=== PATIENT | female | born 1985 | race African-American/Black ===

== ENCOUNTER 2019-04-17 15:25 | Emergency (ER) | payer OTHER, SELFPAY ==
[2019-04-17 15:36] VITALS: BP 101/41; PULSE 69; RESP 18; TEMP 36.2; O2SAT 100
--- NOTE | 2019-04-17 15:37 | ED.URI ---
HPI - URI/Sore Throat General Chief Complaint: Upper Respiratory Infection Stated Complaint: Sore Throat Time Seen by Provider: 04/17/19 15:50 Source: patient and RN notes reviewed Mode of arrival: ambulatory Limitations: no limitations History of Present Illness HPI Narrative: 43-year-old female presents with concern for 1 week history of sore throat, nasal congestion, sinus pain, sinus drainage. Reports intermittent cough. Reports [id number] medications relief. MD elicited complaint: sore throat Related Data Allergies Allergy/AdvReac Type Severity Reaction Status Date / Time No Known Allergies Allergy Verified 05/16/15 19:03 Review of Systems Review of Systems: Narrative: CONSTITUTIONAL: Reports malaise. Denies chills, sweats, or fever. EYES: Denies visual changes, redness, or discharge. ENT: Reports rhinorrhea, congestion, sinus pain, and sore throat. Denies otalgia CARDIOVASCULAR: Denies chest pain, palpitations, or edema. RESPIRATORY: Reports occasional cough. Denies dyspnea. GASTROINTESTINAL: Denies abdominal pain, nausea, vomiting, diarrhea SKIN: Denies rash or itching. MUSCULOSKELETAL: Reports myalgia. NEUROLOGIC: Reports headache. All systems reviewed & are unremarkable except as noted in HPI and below PMFSH Comments At time of signature, agree with nursing past medical, surgical, social and family history. There is no relevant family history pertinent to the presenting complaint Exam Narrative: Exam Narrative: GENERAL: Well-appearing, well-nourished, and in no acute distress. HEAD: Normocephalic EYES: PERRLA, conjunctivae clear ENT: Nares clear, turbinates edematous and erythematous, purulent discharge, sinus tenderness. Mucous membranes moist. TM pearly espino with dull light reflex bilaterally; no tragal tenderness. Oropharynx erythematous without lesions. Tonsils enlarged and without exudate, no drooling, no hoarseness, no trismus. NECK: Supple. No lymphadenopathy CHEST: Clear to auscultation, breath sounds equal. No wheezing, rhonchi, rales, or stridor. No respiratory distress, speaks in full sentences. HEART: Regular rate and rhythm. No murmur heard. Normal peripheral pulses. SKIN: Warm, dry, no rash. NEURO: Alert and oriented x3. PSYCH: Normal mood and affect Course Course Emergency Course: Patient is aware of diagnosis, understands and agrees to treatment plan. Anticipatory guidance given. Patient agrees to follow-up as directed and is aware of reasons to seek care at the emergency department. Portions of this record may have been created with voice recognition software Vital Signs Vital signs: Vital Signs Temperature 97.2 F L 04/17/19 15:36 Pulse Rate 69 04/17/19 15:36 Respiratory Rate 18 04/17/19 15:36 Blood Pressure 101/41 L 04/17/19 15:36 Pulse Oximetry 100 04/17/19 15:36 Temperature 97.2 F L 04/17/19 15:36 Pulse Rate 69 04/17/19 15:36 Respiratory Rate 18 04/17/19 15:36 Blood Pressure 101/41 L 04/17/19 15:36 Pulse Oximetry 100 04/17/19 15:36 Reviewed. MDM - URI/Sore Throat MDM Narrative Medical decision making narrative: Differential diagnosis considered: Strep pharyngitis, allergic rhinitis, upper respiratory tract infection, sinusitis, rhinosinusitis, nasopharyngitis. viral pharyngitis, otitis media, otitis externa, pneumonia, bronchitis, viral cough syndrome, viral syndrome, and influenza. Exam findings show no acute concerns or changes; patient is non-toxic appearing and is in no distress. Patient is appropriate for outpatient treatment and follow-up. Lab Data Attestation: I reviewed the patient's lab results. Labs: Strep Screen Presumptive Negative *(Reference Range: Negative)* Critical Care Time Critical Care Time Critical Care Time: No Discharge Plan Discharge Clinical Impression: Acute bacterial sinusitis Patient Disposition: Home, Self-Care Condition: Stable Instructions: Sinusitis (ED) Additional
== END 2019-04-17 16:24 | disposition home or self-care (01) ==
PROVIDERS: Emergency Provider Nurse Practitioner
DX: J01.90 Acute sinusitis, unspecified (principal)
CPT/HCPCS: 87081; 87880; 99213; G0463

== ENCOUNTER 2023-04-09 08:02 | Emergency (ER) | payer OTHER, MEDICAID, SELFPAY ==
--- NOTE | ~2023-04-09 | XR_ITS ---
EXAMINATION: XR chest 2V DATE: 04/09/2023 08:44 INDICATION: Chest pain. Cough. TECHNIQUE: Frontal and lateral views of the chest were obtained. COMPARISON: None. FINDINGS: There is no pneumonia, pleural effusion, or pneumothorax. The heart size is normal. IMPRESSION: 1. No acute cardiopulmonary disease. Reviewed, dictated and finalized at location A. ZER PERSON
--- NOTE | 2023-04-09 08:17 | ECG_ITS ---
Measurements Intervals [place] Rate: 97 P: 66 MT: 146 QRS: 47 QRSD: 86 T: 10 QT: 343 QTc: 437 Interpretive Statements SINUS RHYTHM POSSIBLE LEFT ATRIAL ENLARGEMENT [-0.1mV P WAVE IN V1/V2] NONSPECIFIC ST ABNORMALITY ABNORMAL ECG NO PREVIOUS ECG AVAILABLE FOR COMPARISON Electronically Signed On 04-09-2023 12:40:27 [employer] by Han Khan M.D.
[2023-04-09 08:18] VITALS: BP 112/58; PULSE 89; RESP 11; TEMP 36.3; O2SAT 100
[2023-04-09 08:34] LABS: Basophils Percent Auto 0.7 % (0.2-1.2); Eosinophils Absolute Auto 0.2 K/mm3 (0-0.3); Eosinophils Percent Auto 3.5 % (0-4.4); Hemoglobin 11.5 g/dL (12.0-15.0); Immature Granulocyte Absolute 0.02 K/mm3 (0.00-0.031); Immature Granulocyte Percent A 0.4 % (0-0.5); Lymphocytes Absolute Auto 0.92 K/mm3 (0.9-3.2); Mean Corpuscular HGB Conc 31.9 g/dl (32-36); Mean Corpuscular Hemoglobin 29.2 pg (26-34); Mean Corpuscular Volume 91.4 fl (80-100); Mean Platelet Volume 9.3 fl (7.4-10.4); Monocytes Absolute Auto 0.8 K/mm3 (0.1-0.6); Monocytes Percent Auto 14.6 % (2.6-8.5); Neutrophils Absolute Auto 3.5 K/mm3 (1.3-6.7); Neutrophils Percent Auto 63.8 % (45.5-73.1); Platelet Count Result 319 k/mm3 (150-375); Red Blood Count 3.94 M/mm3 (4.2-5.4); Red Cell Distribution Width 13.8 % (11.5-14.5); White Blood Count 5.4 K/mm3 (4.5-10.0)
[2023-04-09 08:52] LABS: Alanine Aminotransferase 8 U/L (6-35); Alkaline Phosphatase 56 U/L (38-126); Anion Gap 5 mmol/L (8-16); Aspartate Amino Transferase 17 U/L (14-36); Bilirubin,Total 0.3 mg/dL (0.2-1.3); Blood Urea Nitrogen 6 mg/dL (7-17); Calcium 8.8 mg/dL (8.4-10.2); Carbon Dioxide 27 mmol/L (22-30); Chloride 108 mmol/L (98-107); Estimated CRCL calculation 114 ml/min; Estimated Glomerular Filt Rate > 60; Glucose 98 mg/dL (65-110); Lipase 38 U/L (23-300); Potassium 3.6 mmol/L (3.4-5.0); Sodium 140 mmol/L (137-145)
--- NOTE | 2023-04-09 08:55 | ED.CHESTPAIN ---
HPI - Chest Pain General Chief Complaint: Chest Pain Stated Complaint: Nose bleed, sore throat, chest pain Time Seen by Provider: 04/09/23 08:55 Source: patient Mode of arrival: ambulatory Limitations: no limitations History of Present Illness HPI narrative: Cayla is a 37-year-old female patient presenting to the ER today with complaints of chest discomfort worse with coughing, sore throat, head congestion, and a nose bleed that started this morning. She reports other symptoms started on Thursday. No known fever but has had chills and body aches. No known exposure to anyone with COVID, flu, or strep. States that she noticed blood in her left near this morning after blowing her nose. States it blood for approximately 30 minutes and then it stopped. Denies any associated shortness of breath at this time. Rates her pain in the chest as a dull ache in the anterior chest currently 5/10 currently. Pain does not radiate. Cough is nonproductive. History of anemia and a heart murmur. Related Data Allergies Allergy/AdvReac Type Severity Reaction Status Date / Time No Known Allergies Allergy Verified 04/09/23 08:25 Review of Systems Review of Systems: Pertinent positives per HPI. Patient denies any fever, rash, visual changes, dizziness, shortness of breath, chest pain, palpitations, nausea, vomiting, diarrhea, constipation, abdominal pain, or any urinary issues. PMFSH Comments At the time of my signature, I reviewed and agree with the nursing past medical, surgical, social, and family history. There is no relevant family history pertinent to the patient complaint. Exam Narrative: General: Well-developed, well nourished, in no apparent distress Head: Normocephalic, atraumatic Eyes: Pupils equally round and reactive to light bilaterally, EOM intact, sclera and conjunctive clear, no discharge, lids normal Ears: TMs intact and clear, ear canals clear, no drainage, grossly hearing normal. Nose: Nares patent, clear discharge, severe inflammation in the turbinates left greater than right, right mild maxillary and ethmoid sinus tenderness. Mouth: Oropharynx without lesions or masses, good dentition, MMM. Neck: Supple, trachea midline, no enlargement of anterior or posterior cervical nodes, no thyroid masses or goiter palpable. Cardio: Regular rate and rhythm, s1 and s2 normal, no murmur appreciated. Resp: Clear to auscultation bilaterally anteriorly and posteriorly, no rhonchi, rales, wheezing or rubs Course Course Emergency Course: Portions of this record may have been created with voice recognition software. Vital Signs Vital signs: Vital Signs Temperature 36.3 C L 04/09/23 08:18 Pulse Rate 89 04/09/23 08:18 Respiratory Rate 11 L 04/09/23 08:18 Blood Pressure 112/58 L 04/09/23 08:18 Pulse Oximetry 100 04/09/23 08:18 Oxygen Delivery Room Air 04/09/23 08:18 Temperature 36.3 C L 04/09/23 08:18 Pulse Rate 89 04/09/23 08:18 Respiratory Rate 11 L 04/09/23 08:18 Blood Pressure 112/58 L 04/09/23 08:18 Pulse Oximetry 100 04/09/23 08:18 Oxygen Delivery Room Air 04/09/23 08:18 Vital signs reviewed MDM - Chest Pain MDM Narrative Medical decision making narrative: At the time of visit patient is resting comfortably on the exam table. Patient appears to be nontoxic. EKG: EKG shows sinus rhythm with heart rate of 97 beats per minute without any ST elevation or depression noted. No T-wave inversions Labs: CBC shows white blood cell count of 5.4, H&H 11.5 and 36.0, platelet count 319, anti coagulation studies are within normal limits, sodium levels 140, potassium 3.6, chlorides 1 await, BUN is 6 and creatinine 0.7, GFR greater than 60, glucose is 98, liver function test within normal limits, negative troponin less than 0.012, lipase is 38. COVID, influenza, and RSV testing was negative. Strep test was negative. Diagnostics: Chest x-ray is negative for any acute cardiopulmonary
[2023-04-09 08:56] LABS: Prothrombin Time 13.9 Seconds (11.1-14.7)
[2023-04-09 08:57] LABS: Partial Thromboplastin Time 29.5 SECONDS (22.3-36.8)
[2023-04-09 09:02] LABS: Troponin I < 0.012 ng/mL (0.000-0.034)
[2023-04-09 10:01] LABS: Strep Group A RT-PCR NOT DETECTED (Negative)
[2023-04-09 10:12] LABS: Influenza A QL RT-PCR Negative (Negative); Influenza B QL RT-PCR Negative (Negative); RSV RNA, RT-PCR Negative (Negative); SARS-CoV-2 RNA PCR Negative (Negative)
[2023-04-09 11:09] VITALS: BP 142/84; PULSE 88; RESP 16; O2SAT 98
== END 2023-04-09 11:10 | disposition home or self-care (01) ==
PROVIDERS: Student in an Organized Health Care Education/Training Program; Emergency Provider Nurse Practitioner Family; PCP Nurse Practitioner
DX: J06.9 Acute upper respiratory infection, unspecified (principal); B34.9 Viral infection, unspecified; D64.9 Anemia, unspecified; R04.0 Epistaxis; Z20.822 Contact with and (suspected) exposure to COVID-19
CPT/HCPCS: 36415; 71046; 80053; 83690; 84484; 85025; 85610; 85730; 87637; 87651; 93005; 99284

== ENCOUNTER 2023-09-07 16:49 | Emergency (ER) | payer OTHER, MEDICAID, SELFPAY ==
[2023-09-07 16:58] VITALS: BP 100/53; PULSE 79; RESP 19; TEMP 37; O2SAT 100
--- NOTE | 2023-09-07 17:08 | ED.EAR ---
HPI - Ear Problem General Chief complaint: Ear Stated complaint: Left Ear Irritation Time Seen by Provider: 09/07/23 17:05 Source: patient Mode of arrival: ambulatory Limitations: no limitations History of Present Illness HPI Narrative: Cayla is a 37-year-old female patient presenting to the clinic today with complaints of foreign body in the left ear. She reports she was cleaning her ear with a Q-tip last night and lost part of the cotton swab in her ear. Related Data Allergies Allergy/AdvReac Type Severity Reaction Status Date / Time No Known Allergies Allergy Verified 04/09/23 08:25 Review of Systems Review of Systems: Pertinent positives per HPI. Patient denies any fever, chills, rash, headache, visual changes, dizziness, cough, runny nose, sore throat, shortness of breath, chest pain, palpitations, nausea, vomiting, diarrhea, constipation, abdominal pain, or any urinary issues. PMFSH Comments At the time of my signature, I reviewed and agree with the nursing past medical, surgical, social, and family history. There is no relevant family history pertinent to the patient complaint. Exam Narrative: General: Well-developed, well nourished, in no apparent distress Head: Normocephalic, atraumatic Eyes: Pupils equally round and reactive to light bilaterally, EOM intact, sclera and conjunctive clear, no discharge, lids normal Ears: TMs intact, bulging, fluid noted behind TMs, cotton swab stuck in the left ear canal, alligator forceps was used to remove contact swab, ear canals clear, no drainage, grossly hearing normal. Nose: Nares patent, no discharge, no inflammation, no sinus tenderness. Mouth: Oropharynx without lesions or masses, good dentition, MMM. Neck: Supple, trachea midline, no enlargement of anterior or posterior cervical nodes, no thyroid masses or goiter palpable. Cardio: Regular rate and rhythm, s1 and s2 normal, no murmur appreciated. Resp: Clear to auscultation bilaterally anteriorly and posteriorly, no rhonchi, rales, wheezing or rubs Course Course Emergency Course: Portions of this record may have been created with voice recognition software. Level of Care: Express Care Visit Vital Signs Vital signs: Vital Signs Temperature 37.0 C 09/07/23 16:58 Pulse Rate 79 09/07/23 16:58 Respiratory Rate 19 09/07/23 16:58 Blood Pressure 100/53 L 09/07/23 16:58 Pulse Oximetry 100 09/07/23 16:58 Oxygen Delivery Room Air 09/07/23 16:58 Temperature 37.0 C 09/07/23 16:58 Pulse Rate 79 09/07/23 16:58 Respiratory Rate 19 09/07/23 16:58 Blood Pressure 100/53 L 09/07/23 16:58 Pulse Oximetry 100 09/07/23 16:58 Oxygen Delivery Room Air 09/07/23 16:58 Vital signs reviewed Procedures FB Removal Ear Foreign Body #1: Foreign Body Removal Date: 09/07/23 Location: ear canal (L) Foreign Body Suspected: other (cotton swab) TM intact pre-procedure: yes Foreign Body Removed: yes Foreign Body Removal Technique: instrumentation Tympanic Membrane Intact Post Procedure: Yes Patient Tolerated Procedure: well and no complications Complications: none Medical Decision Making MDM Narrative Medical decision making narrative: At the time of visit patient is resting comfortably on the exam table. Patient appears to be nontoxic. Plan: Foreign body was removed from the left ear canal using alligator forceps in the clinic today. Supportive measures were discussed with the patient and they voiced understanding discharge instructions and agrees to treatment plan. Return precautions reviewed Differential Diagnosis Differential Diagnosis: Otitis media, otitis externa, eustachian tube dysfunction, foreign body in the left ear canal, serous otitis, cerumen impaction Vital Signs Vital Signs: Vital Signs Temperature 37.0 C 09/07/23 16:58 Pulse Rate 79 09/07/23 16:58 Respiratory Rate 19 09/07/23 16:58 Blood
== END 2023-09-07 17:21 | disposition home or self-care (01) ==
PROVIDERS: Emergency Provider Nurse Practitioner Family; PCP Nurse Practitioner
DX: T16.2XXA Foreign body in left ear, initial encounter (principal); W44.8XXA Other foreign body entering into or through a natural orifice, initial encounter; H65.03 Acute serous otitis media, bilateral
CPT/HCPCS: 69200; 99212; G0463

== ENCOUNTER 2023-12-18 03:01 | Emergency (ER) | payer OTHER, MEDICAID, SELFPAY ==
--- NOTE | ~2023-12-18 | XR_ITS ---
EXAMINATION: XR chest 2V DATE: 12/18/2023 03:32 INDICATION: Cough. TECHNIQUE: Frontal and lateral views of the chest were obtained. COMPARISON: Chest 2 views 04/09/2023 FINDINGS: There is no pneumonia, pleural effusion, or pneumothorax. The heart size is normal. IMPRESSION: 1. No acute cardiopulmonary disease. Reviewed, dictated and finalized at location A.
[2023-12-18 03:10] VITALS: BP 114/54; PULSE 114; RESP 15; TEMP 36.6; O2SAT 100
[2023-12-18] MEDS: SODIUM CHLORIDE 0.9% IV 2,000 ML 999 ML IV CONT (03:20)
[2023-12-18] MEDS: ALBUTEROL SULFATE NEB 2.5 MG/3 ML INH 5 MG INHALATION (03:31)
[2023-12-18 03:33] VITALS: PULSE 80; RESP 18
[2023-12-18 03:43] VITALS: PULSE 91; RESP 18
[2023-12-18 04:22] LABS: Influenza A QL RT-PCR Negative (Negative); Influenza B QL RT-PCR Negative (Negative); RSV RNA, RT-PCR Negative (Negative); SARS-CoV-2 RNA PCR Negative (Negative)
--- NOTE | 2023-12-18 04:58 | ED_ITS ---
HPI - URI/Sore Throat General Chief Complaint: Upper Respiratory Infection Stated Complaint: cough/chest pain/back pain Time Seen by Provider: 12/18/23 03:13 Source: patient Mode of arrival: ambulatory Limitations: no limitations History of Present Illness HPI Narrative: This is a 38-year-old female, who denies significant past medical history, presenting to the emergency department complaining of cough and congestion for the past week. She states this is not productive and nonbloody. She complains of diffuse bilateral chest wall pain with deep inspirations and coughing. She denies recent travel or known sick contacts. She has no other complaints at this time. Related Data Allergies Allergy/AdvReac Type Severity Reaction Status Date / Time No Known Allergies Allergy Verified 12/18/23 03:02 Review of Systems Review of Systems: Last menstrual All systems reviewed & are unremarkable except as noted in HPI and below PMFSH Past Medical History Medical History No significant past medical history Surgical History Surgical History No significant past surgical history Social History Social History Smoking status: Never smoker Alcohol intake: never Substance use: never Exam Narrative: GENERAL: Well-developed, well-nourished, and in no acute distress. HEAD: Normocephalic, atraumatic. EYES: PERRLA and EOMI. ENT: Nares clear, no rhinorrhea or epistaxis. Mucous membranes moist. Oropharynx without tonsillar hypertrophy exudate or other lesions. Bilateral TM s pearly espino nonbulging CHEST: Clear to auscultation. No respiratory distress. No wheezes rales or rhonchi HEART: Regular rate and rhythm. No murmur heard. Normal peripheral pulses. ABDOMEN: Soft, nontender, nondistended, normal active bowel sounds. EXTREMITIES: Normal range of motion. No edema. SKIN: Warm, dry, no rash. NEURO: Alert and oriented x3. No focal deficit. Moving all 4 limbs spontaneously PSYCH: Normal mood and affect. Course Course Emergency Course: 04:50 - Chest x-ray not concerning for focal consolidation by my interpretation. The patient tested negative for influenza, RSV and COVID. On re-evaluation after a 5 mg albuterol nebulizer treatment, the patient states she feels improved lower cough persists. I suspect viral upper respiratory infection and bronchitis is the cause of her symptoms. Will discharge with albuterol nebs, benzonatate and recommendation for primary care follow-up. I discussed the findings and recommendations with the patient. Discussed return and emergency precautions including signs/symptoms of ACS, PE and respiratory distress. The patient voiced understanding and agreement with the plan. All questions answered to her satisfaction. Vital Signs Vital signs: Vital Signs Temperature 98 F 12/18/23 03:10 Pulse Rate 114 H 12/18/23 03:10 Respiratory Rate 15 12/18/23 03:10 Blood Pressure 114/54 L 12/18/23 03:10 Pulse Oximetry 100 12/18/23 03:10 Oxygen Delivery Room Air 12/18/23 03:10 Temperature 98 F 12/18/23 03:10 Pulse Rate 91 12/18/23 03:43 Respiratory Rate 18 12/18/23 03:43 Blood Pressure 114/54 L 12/18/23 03:10 Pulse Oximetry 100 12/18/23 03:10 Oxygen Delivery Room Air 12/18/23 03:10 MDM - URI/Sore Throat MDM Narrative Medical decision making narrative: Plan: Labs, nebs, imaging, reassess Differential Diagnosis Differential diagnosis: Likely upper respiratory infection, viral infection, bronchitis, influenza and other (COVID, pneumonia, pneumothorax, other) Lab Data Labs: Lab Results 12/18/23 Range/Units 03:18 Influenza A (RT-PCR) Negative (Negative) Influenza B (RT-PCR) Negative (Negative) RSV (RT-PCR) Negative (Negative) SARS-CoV-2 RNA (RT-PCR) Negative (Negative) Discharge Plan Discharge Clinical Impression: Bronchitis Upper respiratory infection Qualifiers: URI type: unspecified viral URI Qualified Code(s): J06.9 - Acute upper respiratory infection, unspecified Patient Disposition: Home, Self-Care Condition: Stable Instructions: Antibiotic Form, Acute Bronchitis (ED) Additional Instructions: You were seen in the emergency department. A chest x-ray was not concerning for pneumonia. You tested negative for COVID, influenza and RSV. Your given albuterol nebulizer treatment in the emergency department. I suspect a viral upper respiratory infection and bronchitis is the cause of your symptoms. I recommend cough suppressants, decongestants and albuterol as needed as well as follow-up with your primary care doctor. If you develop new or worsening chest pain cough shortness of breath, loss of consciousness, or if you have other emergent concerns for life, limb, or eyesight, return to the emergency department. Patient Language: Nauruan Prescriptions: New albuterol sulfate 90 mcg/actuation HFA aerosol inhaler 2 puff inhalation QID PRN (Reason: shortness of breath or wheezing) Qty: 6.7 0RF benzonatate 200 mg capsule 200 mg PO TID PRN (Reason: cough) Qty: 9 0RF Follow-up/Referrals: Anthony,PANCHO Hernández [Primary Care Provider] - Stand Alone Forms: Work/School Release IP Time of Disposition: 05:00
== END 2023-12-18 05:05 | disposition home or self-care (01) ==
PROVIDERS: Emergency Provider Preventive Medicine Aerospace Medicine; PCP Nurse Practitioner
DX: J40 Bronchitis, not specified as acute or chronic (principal); J06.9 Acute upper respiratory infection, unspecified; Z20.822 Contact with and (suspected) exposure to COVID-19
CPT/HCPCS: 71046; 87637; 94640; 96360; 96361; 99283; J7030

== ENCOUNTER 2024-07-01 00:41 | Emergency (ER) | payer OTHER, SELFPAY ==
[2024-07-01] VITALS (13 sets, daily range): BP systolic 100–122; BP diastolic 45–78; PULSE 72–89; RESP 13–21; TEMP 36.7; O2SAT 95–100
--- NOTE | ~2024-07-01 | CT_ITS ---
Non-contrast CT scan of the Abdomen and Pelvis Clinical indication: Abdominal pain Technique: 2.5 mm axial scans were obtained through the abdomen and pelvis without intravenous or or al contrast. Dose reduction technique was used on this scan by utilizing automated exposure control a nd iterative reconstruction technique. The dose-length product (DLP) was 904.53 mGy-cm. Findings: Images through the lung bases reveal no abnormalities. There is no evidence of renal or ureteral calculi. The kidneys and the ureters are nondilated. Small hepatic cysts are present. The spleen, pancreas, gallbladder, and adrenals appear normal. Ther e is no aortic aneurysm. There is no evidence of bowel obstruction. Images through the pelvis were performed. There is no evidence of ascites or lymphadenopathy. Urinary bladder unremarkable. No definite adnexal mass seen. Impression: No significant abnormality seen. Reviewed, dictated and finalized at [facility]. Impression: No significant abnormality seen.
--- OUTSIDE RECORDS SUMMARY | 2024-07-01 00:44 | XMS_ITS | Encounter Summary ---
Author Organization [facility] Address [address] [place] [address] Phone Care Team Providers Care Wire Photo Operator News Name Role Phone Unknown, Notinfile Primary Care Provider Unavail able Betty Cruz PIZZA CHEF Primary Care Provider [phone] Encounter Details Date Type Department Care Team (Late st Contact Info) Description 04/20/2017 Orders Only [facility] ProviderLakesha MD [address] [place], [place] [id number] Social History Tobacco Use Types Packs/Day Years Used Date Smoking Tobacco: Never Assessed Comments Unknown Sex and Gender Information Value Date Recorded Sex Assigned at Not on file Legal Sex Female 6:12 PM ONCOLOGY PHYSICIAN ASSISTANT Gender Identity Not on file Sexual Orientation Not on file documented as of this encounter Plan of Treatment Not on file documented as of this encounter Procedures Procedure Name Priority Date/Time Associated Diagnosis Comments CYTOLOGY 04/20/2017 12:00 AM ONCOLOGY PHYSICIAN ASSISTANT documented in this encounter Results * CYTOLOGY (04/20/2017 12:00 AM ONCOLOGY PHYSICIAN ASSISTANT) Narrative 04/20/2017 12:00 AM ONCOLOGY PHYSICIAN ASSISTANT Ordered by an unspecified provider. Historical Provider LAB CYTOLOGY ORDERABLES F inal Result documented in this encounter Visit Diagnoses Not on filedocumented in this encounter Additional Health Concerns Infection Onset Date Last Indicated Resolved Time COVID: Suspected 12/04/2020 12/04/2020 12/05/2020 12:08 AM CDT COVID: Suspected 07/08/2021 07/08/2021 07/08/2021 5:45 PM CDT COVID19 07/08/2021 07/08/2021 07/18/2021 3:05 AM CDT COVID: Recovered Comment:Added based on recent COVID infection. 07/18/2021 10/14/2021 11/15/2021 3:05 AM C DT COVID: Suspected 09/24/2023 09/24/2023 09/24/2023 10:33 PM CDT COVID19 09/24/2023 09/24/2023 10/04/2023 3:05 AM CDT documented as of this encounter Care Teams Wire Photo Operator News Relationship Specialty Start Date End Date Unknown, Notinfile PCP - General 04/06/18 11/24/19 Betty Cruz [place] [address] [place] [address] PCP - General Publicity Expert 11/25/19 documented as of this encounter
--- OUTSIDE RECORDS SUMMARY | 2024-07-01 00:44 | XMS_ITS | Clinical Summary ---
Author Organization [facility] Address [address] [place] [address] Care Team Providers Care Property Portfolio Officer Name Role Phone Kelley Cruza ABIMBOLA Primary Care Provider [phone] Allergies No known active allergies Medications cholecalciferol (VITAMIN D-3) 50,000 unit capsule Take 1 capsule (50,000 Units total) by mouth once a week 4 capsule 5 0 Active levonorgestreL-eth inyl estrad (Lutera, 28,) 0.1-20 mg-mcg per tabletIndications: Oral contraceptive pill surveillance Take 1 tablet by mouth daily 84 tablet 2 2 Active Active Problems No known active problems Family History Medical History Relation Name Comments Asthma Brother Breast cancer Mother's Sister Relation Name Status Comments Brother Mother's Sister Other at age 50's Social History Tobacco Use Types Packs/Day Years Used Date Smoking Tobacco: Never Smokeless Tobacco: Never Alcohol Use Standard Drinks/Week Comments Yes 0 (1 standard drink = 0.6 oz pur e alcohol) Personal Safety Answer Date Recorded Have you ever been in or are you currently in a harmful physical or emotional relationship or is someone making you feel afraid or unsafe? Denies 09/24/2023 Comments No Sex and Gender Information Value Date Recorded Sex Assigned at Not on file Legal Sex Female 6:12 PM JEWELRY CONSULTANT Gender Identity Not on file Sexual Orientation Not on file Obstetrics History Para Term AB IAB SAB Ectopic Multiple Livin g Live Births 3 3 3 0 0 0 0 0 0 3 3 Date Outcome GA Total Labor Labor/2nd/3rd Weight Sex Type Anes PTL Andria A1 A5 Name Clin Term Term Term Last Filed Vital Signs Vital Sign Reading Time Taken Comments Blood Pressure 138/67 09/24/2023 9:23 PM CDT Pulse 110 09/24/2023 9:23 PM CDT Temperature 36.4 C (97.5 F) 09/24/2023 9:23 PM CDT Respiratory Rate 16 09/24/2023 9:23 PM CDT Oxygen Saturation 100% 09/24/2023 9:23 PM CDT Inhaled Oxygen Concentration - - Weight 97.5 kg (215 lb) 09/24/2023 9:23 PM CDT Height 170.2 cm (5' 7 ) 07/08/2021 5:24 PM CDT Body Mass Index 33.67 07/08/2021 5:24 PM CDT Plan of Treatment Health Maintenance Due Date Last Done Comments Depression Screening 1985 Varicella Vaccines (1 of 2 - 13+ 2-dose series) 10/14/1996 Hepatitis B Screening 10/14/2001 Cervical Cancer Screening 04/20/2018 04/20/2017, Regular Well Visit/Exam 18-64 04/05/2022 04/05/2021, 11/25/2019 Breast Cancer Screening-Mammogram 04/11/2023 04/11/2022 Covid-19 Vaccine ( season) 2023 10/24/2020, 10/02/2020 Influenza Vaccine (Season Ended) 2024 12/29/2022, 01/14/2022, 04/14/2016 DTaP/Tdap/Td Vaccine (2 - Td or Tdap) 07/16/2032 07/16/2022 Hepatitis C Screening Completed 04/05/2021 , 01/31/2020, 04/06/2017, Additional history exists HPV Vaccines Aged Out No longer eligi ble based on patient's age to complete this topic Pneumococcal vaccine <65 Aged Out No longer eligible based on patient's age to complete this topic Procedures Procedure Name Priority Date/Time Associated Diagnosis Comments HEPATITIS C ANTIBODY Routine 04/05/2021 12:44 PM JEWELRY CONSULTANT Screen for STD (sexually transmitted disease) THINPREP PAP Routine 04/20/2017 9:10 PM JEWELRY CONSULTANT from Last 3 Months or Most Recently Relevant to Health Maintenance Results * Hepatitis C antibody (04/05/2021 12:44 PM JEWELRY CONSULTANT) Hep C Ab Nonreactive Nonreactive [facility]LE Comment: Interpretive Data Nonreactive: Antibodies to HCV not detected. Does NOT exclude the possibility of recent exposure to HCV. Equivocal: Equivocal for HCV antibodies. Supplemental molecular testing will be automatically performed to determine infection status in accordance with current CDC screening recommendations. Reactive: Positive for HCV antibodies. This may represent current or past HCV infection. Supplemental molecular testing will be automatically performed to determine current infection status in accordance with current CDC screening recommendations. Interpretive data was last revised on 2019. Blood 04/05/2021 12:4 4 PM JEWELRY CONSULTANT 04/05/2021 6:39 PM JEWELRY CONSULTANT Sergio Duran MD LAB MICROBIOLOGY - GENERAL ORDERABLES Final Result [facility] [address] [facility] Department [place] [address] * ThinPrep Pap (04/20/2017 9:10 PM JEWELRY CONSULTANT) THIN PREP PAP SMEAR SEE NOTES 04/27/2017 11:23 AM JEWELRY CONSULTANT [facility] HISTORICAL RESULTS Comment: [facility] Department of Pathology [address] [place] [id number] Final Report with Addendum Patient Name: CAYLA HARDIN Address: [address] [place] [address] Service: Laboratory Location: Lab Taken: 04/20/2017 Gender: F Received 04/22/2017 : 1985 (Age: 31) Hospital #: [id number] Accessioned: 04/23/2017 Patient Type: CH Ref Lab Reported 04/24/2017 Physician(s): Dr. Sergio Duran M.D. [facility] Diagnosis: Source of Specimen: SCREENED IMAGED PAP w/ HPV . Specimen Adequacy: - Specimen satisfactory for interpretation; endocervical/transformation zone component absent or insufficient . General Category: - Negative for intraepithelial lesion or malignancy . RICHARD Duran(ASCP) Report Electronically Reviewed and Signed Out By RICHARD Duran(ASCP) 04/24/2017 09:56:06 . Addenda: HPV RNA Test Interpretation . NEGATIVE for types 16, 18, 31, 33, 35, 39, 45, 51, 52, 56, 58, 59, 66 and 68. . Test performed utilizing [employer] Aptima assay. RICHARD Brewster(ASCP) Report Electronically Reviewed and Signed Out By RICHARD Brewster(ASCP) 04/23/2017 14:22:56 . Specimen(s) Received: A: SCREENED IMAGED PAP w/ HPV . Clinical History: Last Menstrual Period: 04/14/17 . . The Pap test is a screening test used to aid in the detection of cervical cancer and its precursors. It should not be the sole means by which malignant and premalignant lesions are diagnosed. Both false negative and false positive results may occur. It also has poor sensitivity for the detection of endometrial lesions and should not be used to evaluate suspected endometrial abnormalities. For these reasons it is most important to obtain Pap tests at regular intervals. The performance characteristics of some immunohistochemical stains, fluorescence in-situ hybridization tests and immunophenotyping by flow cytometry cited in this report (if any) were determined by the Surgical Pathology Department at [facility] as part of an ongoing bottle house quality control technician program and in compliance with federally mandated regulations drawn from the Clinical Laboratory Improvement Act of 1988 (CLIA '88). Some of these tests rely on the use of analyte specific reagents and are subject to specific labeling requirements by the US Food and Drug Administration. Such diagnostic tests may only be performed in a facility that is certified by the Department of Health and Human Services as a high complexity laboratory under CLIA '88. The FDA has determined that such clearance or approval is not necessary. This test is used for clinical purposes. It should not be regarded as investigational or for research. Nevertheless, federal rules concerning the medical use of analyte specific reagents require that the following disclaimer be attached to the report: This test was developed and its performance characteristics determined by the Surgical Pathology Department of [facility]. It has not been cleared or approved by the U. S. Food and Drug Administration. 04/20/2017 9:10 PM JEWELRY CONSULTANT 04/21/2017 2:42 PM JEWELRY CONSULTANT Sergio Duran MD LAB PATHOLOGY ORDERABLES F inal Result [facility] HISTORICAL RESULTS from Last 3 Months or Most Recently Relevant to Health Maintenance Insurance [facility] [employer] Address: [facility] [id number] [place] [address] [facility] [employer] Address: [address] [place] [address] [employer] Address: [facility] [id number] [place] [address] Care Teams Property Portfolio Officer Relationship Specialty Start Date End Date Betty Cruz NP [address] [place] [address] PCP - General [place] 11/25/19
--- OUTSIDE RECORDS SUMMARY | 2024-07-01 00:44 | XMS_ITS | Clinical Summary ---
Author Organization [facility] Address [address] [place] [address] Care Team Providers Care Shaving Machine Operator Name Role Phone Betty Cruz MILITARY AIRCRAFT DESIGNER-LATENT PRINT EXAMINER Primary Care Provider [phone] Source Comments [facility],non-owned Affiliates and Associated Physician Practices is amultiple site organization consisting of ambulatory clinics and hospital sitesin [place], [place], [place] and [place]. This disclosure is being madepursuant to the Care Everywhere program and may not contain all information available regarding this patient. Last updated 17.[facility] Allergies No known active allergies Medications * Be aware that medications may not be up to date on this document. Alwaysverify current medications with the patient. nystatin/triamc inolone (MYCOLOG) 686285-5.1 UNIT/GM-% ointment SANJU SPARINGLY EXT AA BID FOR 7 TO 14 DAYS 7 Active levonorgestrel- ethinyl estradiol (AVIANE) 0.1-20 MG-MCG tablet Take 1 tablet by mouth once daily 7 Active selenium sulfide (SELSUN) 2.5 % lotion Use daily to affected areas x 2 weeks, then decrease use to 1-2x weekly as maintanence therapy if improved. 118 mL 11 8 Active Additional Information Patient not taking.Reported on 09/08/2017 fluconazole (DIFLUCAN) 200 MG tabletIndicatio ns:Tinea versicolor Take 1 tablet by mouth every 7 days 2 tablet 8 Active Active Problems Problem Noted Date Diagnosed Date Tinea versicolor 09/08/2017 Family History Medical History Relation Name Comments Asthma Neg Hx CVA Neg Hx Cancer - Breast Neg Hx Cancer - Other Neg Hx Cancer - Skin, Melanoma Neg Hx Cancer - Skin, Non Melanoma Neg Hx Eczema Neg Hx Hemophilia Neg Hx Psoriasis Neg Hx Social History Tobacco Use Types Packs/Day Years Used Date Smoking Tobacco: Never Smokeless Tobacco: Never Alcohol Use Standard Drinks/Week Comments No 0 (1 standard drink = 0.6 oz pur e alcohol) Comments Unknown Sex and Gender Information Value Date Recorded Sex Assigned at Not on file Legal Sex Female 5:33 AM DIRECTOR OF SUSTAINABLE DESIGN Gender Identity Not on file Sexual Orientation Not on file Plan of Treatment Health Maintenance Due Date Last Done Comments LIPID TESTING 1985 MAMMOGRAM 1985 HIV SCREENING 10/14/1998 HEPATITIS C SCREENING 10/10/2001 DTAP/TDAP/TD VACCINES (1 - Tdap) 10/14/2002 HEPATITIS B VACCINE (1 of 3 - 19+ 3-dose series) 10/14/2002 COVID-19 VACCINE (1 - 2023-2 5 season) 2023 DEPRESSION SCREENING 02/24/2024 INFLUENZA VACCINE (Season Ended) 2024 ZOSTER VACCINE (1 of 2) 10/14/2033 HIB VACCINE Aged Out No longer eligi ble based on patient's age to complete this topic HPV VACCINE Aged Out No longer eligi ble based on patient's age to complete this topic MENINGOCOCCAL (Group B) VACC INE SHARED DECISION-MAKING Aged Out No longer eligibl e based on patient's age to complete this topic MENINGOCOCCAL GROUPS A/C/Y/W VACCINE Aged Out No longer eligible b ased on patient's age to complete this topic PNEUMOCOCCAL VACCINE Aged Out No long er eligible based on patient's age to complete this topic Insurance [facility] Care Teams Shaving Machine Operator Relationship Specialty Start Date End Date Betty Cruz APRN-NITA [place] [place] [address] PCP - General 09/02/17
--- OUTSIDE RECORDS SUMMARY | 2024-07-01 00:44 | XMS_ITS | Clinical Summary ---
Author Organization [facility] Address [address] [place] [address] Care Team Providers Care Equipment Superintendent Name Role Phone Valentín Cruz NP Primary Care Provider [phone] Allergies No known active allergies Medications ondansetron (ZOFRAN) 4 MG tabletIndicatio ns:Flank pain Take 1 tablet (4 mg total) by mouth every 8 (eight) hours as needed. 20 tablet 5 Active tamsulosin (FLOMAX) 0.4 MG CapIndications: Flank pain Take 1 capsule (0.4 mg total) by mouth daily. 90 capsule 1 5 Active phentermine (ADIPEX-P) 37.5 MG capsuleIndicati ons:Class 1 obesity due to excess calories without serious comorbidity with body mass index (BMI) of 31.0 to 31.9 in adult Take 1 capsule (37.5 mg total) by mouth before breakfast. 30 capsule 4 025 Discontinued tamsulosin (FLOMAX) 0.4 MG CapIndications: Flank pain Take 1 capsule (0.4 mg total) by mouth daily. 30 capsule 5 025 Discontinued traMADol (ULTRAM) 50 MG tabletIndicatio ns:Acute Pain < 7 Day Supply Take 1 tablet (50 mg total) by mouth every 8 (eight) hours as needed for Pain. Indications : Acute Pain < 7 Day Supply 21 tablet 5 025 Active Problems Problem Noted Date Diagnosed Date Tinea versicolor 11/19/2016 Murmur Resolved Problems Problem Noted Date Diagnosed Date Resolved Date Encounter to establish care 04/14/2016 01/05/2023 Encounter for preventive health examination 02/20/2016 01/05/2023 Chest pain 07/16/2022 Encounters Date Type Department Care Team Description 06/24/2024 11:20 AM CDT Allied Health/Nurse Visit [address] [phone] Valentín Cruz NP Blood In Urine 06/24/2024 - 06/24/2024 11:59 PM CDT Hospital Encounter [facility] [place] [address] Valentín Cruz NP Discharge Disposition: Home or Self Care (Routine Discharge) 06/24/2024 Travel 06/09/[address] [address] Valentín Cruz NP Results (Imaging results. Unable to LVM.) 06/08/[address] [address] Valentín Cruz NP Question 06/08/[address] [phone] Valentín Cruz NP Follow Up Call 06/08/2024 Results Follow-Up [address] [address] Valentín Cruz NP XR ABD KUB, URINALYSIS AUTO DIP, URINALYSIS MICRO ONLY 06/07/2024 4:30 PM CDT - 06/07/2024 11:59 PM CDT Hospital Encounter [facility] [place] [address] Valentín Cruz NP Discharge Disposition: Home or Self Care (Routine Discharge) 06/07/2024 3:20 PM CDT Office Visit [address] [phone] Valentín Cruz NP Back Pain (Patient was recently treated with abx (cephalexin) for a UTI after going to . Patient states her back pain is worsening and developed n/v.) 06/07/2024 Travel 06/03/[address] [phone] Valentín Cruz NP Appointment Request from Last 3 Months Immunizations Immunization Administration Dates Next Due Fluzone (IIV3, Trivalent, 0. 5 ML Prefilled Syringe) 01/06/2024 Fluzone 6 Months+ Quad (0.5 mL Prefilled Syringe) 12/29/2022 HPV GARDASIL 9-VALENT 07/16/2022 Influenza Adult (Generic) 01/14/2022,04/14/2016, 04/14/2016 MMR 03/29/1993 Tdap (Adacel) 07/16/2022 Family History Medical History Relation Comments Breast Cancer Maternal Aunt Cancer Maternal Aunt Stroke Maternal Grandmother Relation Status Comments Brother 1 Alive Brother 2 Alive Father Alive Maternal Aunt Maternal Grandmother (Age 86) Mother Alive Sister 1 Alive Sister 2 Alive Social History Tobacco Use Types Packs/Day Years Used Date Smoking Tobacco: Never Passive Smoke Exposure: Never Smokeless Tobacco: Never Tobacco Cessation:Counseling Given: No Alcohol Use Standard Drinks/Week Comments No 0 (1 standard drink = 0.6 oz pur e alcohol) AUDIT-C Answer Date Recorded Frequency of Alcohol Consumption Never 04/15/2018 Average Number of Drinks Not on file 019 Frequency of Binge Drinking Not on file 03/27 PHQ-2 Answer Date Recorded Patient Health Questionnaire-2 Score 0 06/18/2023 Comments No Sex and Gender Information Value Date Recorded Sex Assigned at Not on file Legal Sex Female 5:06 PM CDT Gender Identity Not on file Sexual Orientation Not on file 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 Not on file Not on file Last Filed Vital Signs Vital Sign Reading Time Taken Comments Blood Pressure 102/61 06/07/2024 3:27 PM CDT Pulse 65 06/07/2024 3:27 PM CDT Temperature 37.1 C (98.8 F) 06/07/2024 3:27 PM CDT Respiratory Rate 18 06/18/2023 11:02 AM CDT Oxygen Saturation 98% 06/07/2024 3:27 PM CDT Inhaled Oxygen Concentration - - Weight 93.4 kg (206 lb) 06/07/2024 3:27 PM CDT Height 170.2 cm (5' 7 ) 06/07/2024 3:27 PM CDT Body Mass Index 32.26 06/07/2024 3:27 PM CDT Plan of Treatment Health Maintenance Due Date Last Done Comments Cervical Cancer Screening Pa p Smear (Age 30 to 64) Every 3 Years 1985 Hepatitis C 10/14/2001 Hepatitis B Vaccines (1 of 3 - 19+ 3-dose series) 10/14/2002 Cervical Cancer Screening Pa p with HPV Testing (Age 30 to 64) Every 5 Years 04/20/2022 04/20/2017 Cervical Cancer Screening wi th HPV 04/20/2022 HPV Vaccines (2 - 3-dose SCD M series) 08/13/2022 07/16/2022 Annual Physical 07/17/2023 07/16/2022 COVID-19 Vaccine (3 - 2023-2 5 season) 2023 10/24/2020, 10/02/2020 PHQ-2 (Physician [place]) 02/24/2024 06/18/2023 Mammogram Screening 04/11/2024 04/11/2022 DTaP, Tdap and Td Vaccines ( 2 - Td or Tdap) 07/16/2032 07/16/2022 Meningococcal B Vaccine Aged Out No l onger eligible based on patient's age to complete this topic Meningococcal Vaccine Aged Out No roselyn monika eligible based on patient's age to complete this topic Pneumococcal Vaccine: Pediatrics (0 to 5 Years) and At-Risk Patients (6 to 49 Years) Aged Out No longer eligible b ased on patient's age to complete this topic RSV Immunizations Under 20 Months Aged Out No longer eligible b ased on patient's age to complete this topic Procedures Procedure Name Priority Date/Time Associated Diagnosis Comments URINE BACTERIA CULTURE Routine 06/24/2024 3:06 PM CDT Flank pain URINALYSIS AUTO DIP Routine 06/24/2024 1 1:47 AM CDT Flank pain XR ABD KUB Routine 06/07/2024 4:39 PM CDT Flank pain URINALYSIS MICRO ONLY Routine 06/07/2024 4:09 PM CDT Hematuria, unspecified type URINALYSIS AUTO DIP Routine 06/07/2024 Flank pain MG DIAG W ISABELLA BILAT DIGI Routine 04/11/2022 12:36 PM HYDRAULIC BARKER OPERATOR Breast pain, left OUTSIDE CYTOPATH CERV/VAG INTERPRET (PAP) Routine 04/20/2017 from Last 3 Months or Most Recently Relevant to Health Maintenance Results * URINE BACTERIA CULTURE (06/24/2024 3:06 PM CDT) SPEC DESCRIPTION URINE CLEAN CATCH 06/24/2024 3:06 PM CDT [facility] SPECIAL REQUESTS NO SPECIAL REQUEST 06/24/2024 3:06 PM CDT [facility] CULTURE RESULT EQUAL OR >100,000 CFU/mL GRAM POSITIVE BACILLI RESEMBLING DIPHTHEROIDS 06/27/2024 2:51 PM CDT [facility] URINE SPECIMEN OBTAINED BY CLEAN CATCH PROCEDURE / Unknown 06/24/2024 3:06 PM CDT 06/24/2024 9:21 PM CDT us Valentín Cruz NP MICROBIOLOGY - GENERAL ORDERABL ES Final Result [facility] [place] [address], [id number] * (ABNORMAL) URINALYSIS AUTO DIP (06/24/2024 11:47 AM CDT) Only the most recent of2 resultswithin the time period is included. COLOR (U) PALE YELLOW YELLOW MG-LUDWI [facility] CLEAR CLEAR MG-LUDW IG [facility] [place] GLUCOSE (U) NEGATIVE NEGATIVE MG/DL [facility] [place] BILIRUBIN (U) NEGATIVE NEGATIVE -NAINA WIG [facility] [place] KETONES MG/DL (U) NEGATIVE NEGATIVE MG/DL [facility] [place] SPECIFIC GRAVITY (U) 1.015 1.001 - 1.035 [facility] [place] BLOOD (U) NEGATIVE NEGATIVE [facility] [place] U PH 7.0 5.0 - 9.0 [facility] [place] PROTEIN (U) NEGATIVE NEGATIVE mg/dL [facility] [place] UROBILINOGEN 0.2 0.2 - 1.0 EU/dL = mg/dL [facility] [place] NITRITES NEGATIVE NEGATIVE MG/DL [facility] [place] LEUKOCYTES (U) TRACE(A) NEGATIVE -GLORIA DWIG [facility] URINE SPECIMEN OBTAINED BY CLEAN CATCH PROCEDURE / Unknown 06/24/2024 11:47 AM CDT us Valentín Cruz GUARD MANAGER URINE ORDERABLES Final Result [facility] [address] [place] [address], * XR ABD KUB (06/07/2024 4:39 PM CDT) Anatomical Region Laterality Modality Abdomen Radiographic Nila ging 06/08/2024 8:38 AM CDT Impressions 06/08/2024 8:40 AM CDT IMPRESSION: 1. No radiographic evidence of renal or ureteric stones. 2. Moderate fecal burden within the colon, which can be seen with constipation. Ordered By: VALENTÍN CRUZ Interpreted By: Zoe Shepard MD, 06/08/2024 8:38 AM Narrative 06/08/2024 8:40 AM CDT [address] [place], [place] [address] PROCEDURE: XR ABD KUB HISTORY: rule out kidney stone TECHNIQUE: Supine image(s) of the abdomen and pelvis were obtained on 06/07/2024 at 1653 hours. COMPARISON: None. FINDINGS: LINES OR TUBES: None LUNG BASES: The lung bases are clear. BOWEL GAS PATTERN: There are no abnormally dilated loops of bowel. Moderate fecal burden is seen within the colon. FREE AIR: No free air is detected on this supine exam. CALCIFICATIONS/OTHER: There are scattered phleboliths in the lower pelvis. No suspicious calcifications within the abdomen or pelvis to suggest renal or ureteric stones. MUSCULOSKELETAL: Minimal degenerative changes at the pubic symphysis. Procedure Note Zoe Shepard MD - 06/08/2024 [facility] [address] [place], [place] [address] PROCEDURE: XR ABD KUB HISTORY: rule out kidney stone TECHNIQUE: Supine image(s) of the abdomen and pelvis were obtained on06/07/2024 at 1653 hours. COMPARISON: None. FINDINGS: LINES OR TUBES: None LUNG BASES: The lung bases are clear. BOWEL GAS PATTERN: There are no abnormally dilated loops of bowel.Moderate fecal burden is seen within the colon. FREE AIR: No free air is detected on this supine exam. CALCIFICATIONS/OTHER: There are scattered phleboliths in the lower pelvis.No suspicious calcifications within the abdomen or pelvis to suggest renalor ureteric stones. MUSCULOSKELETAL: Minimal degenerative changes at the pubic symphysis. IMPRESSION: 1. No radiographic evidence of renal or ureteric stones. 2. Moderate fecal burden within the colon, which can be seen withconstipation. Ordered By: VALENTÍN CRUZ Interpreted By: Zoe Shepard MD, 06/08/2024 8:38 AM Valentín Cruz GUARD MANAGER GENERAL IMAGING Final Result * (ABNORMAL) URINALYSIS MICRO ONLY (06/07/2024 4:09 PM CDT) RBC/HPF 4-9(A) 0 - 3 /HPF 06/07/2024 7:39 PM CDT [facility] WBC/HPF 0-3 0 - 3 /HPF 06/07/2024 7:39 PM CDT [facility] EPI/HPF 0-3 /HPF 06/07/2024 7:39 PM CDT [facility] BACTERIA (U) NONE SEEN NONE SEEN 06/07/2024 7:39 PM CDT [facility] MUCUS FEW 06/07/2024 7:39 PM CDT [facility] URINE SPECIMEN OBTAINED BY CLEAN CATCH PROCEDURE / Unknown 06/07/2024 4:09 PM CDT us Valentín Cruz GUARD MANAGER URINE ORDERABLES Final Result [facility] [address] [place] [address], * MG DIAG W ISABELLA BILAT DIGI (04/11/2022 12:36 PM HYDRAULIC BARKER OPERATOR) Anatomical Region Laterality Modality Breast Bilateral Mammography 04/11/2022 12:4 9 PM HYDRAULIC BARKER OPERATOR Narrative 04/11/2022 12:53 PM HYDRAULIC BARKER OPERATOR EXAMINATION: Digital bilateral diagnostic mammogram with 3-D tomography EXAM DATE/TIME: 04/11/2022 12:15 PM REASON FOR EXAM: Left breast pain. Patient indicates an region of pain in the right breast superiorly for 2 months. Previous left breast biopsy in 2002. Family history of breast cancer in her aunt. COMPARISON: None. Baseline exam. TECHNIQUE: Digital diagnostic mammography of both breasts was performed in addition to 3-D Tomosynthesis technique. This study was read with the assistance of a computer-aided detection system. TISSUE DENSITY: There are scattered areas of fibroglandular density. FINDINGS: The breast parenchymal pattern is grossly symmetric. There are no suspicious calcifications, masses, architectural distortion or skin thickening on either side. =====IMPRESSION:===== No mammographic findings suggestive of malignancy. ASSESSMENT: ACR BI-RADS 2 - BENIGN FINDING(S) Recommendation: 1: Routine Screening Bilateral Ordered By: VALENTÍN CRUZ Interpreted By: Weston Fenton MD, 04/11/2022 12:49 PM us Valentín Cruz GUARD MANAGER MAMMO Final Result * PAP SMEAR WITH HPV (04/20/2017) 04/20/2017 us [facility] Scanned SCANNING Final Resu lt [facility] from Last 3 Months or Most Recently Relevant to Health Maintenance Insurance [facility] Care Teams Equipment Superintendent Relationship Specialty Start Date End Date Valentín [place] [address] PCP - General 05/12/16
--- OUTSIDE RECORDS SUMMARY | 2024-07-01 00:44 | XMS_ITS | Referral Summary ---
Author Organization [facility] Address [address] [place] [address] Care Team Providers Care Steam Locomotive Firer/Fireman Name Role Phone Kelley Cruza ABIMBOLA Primary Care Provider [phone] Allergies No known active allergies Medications cholecalciferol (VITAMIN D-3) 50,000 unit capsule Take 1 capsule (50,000 Units total) by mouth once a week 4 capsule 5 0 Active levonorgestreL-eth inyl estrad (Lutera, 28,) 0.1-20 mg-mcg per tabletIndications: Oral contraceptive pill surveillance Take 1 tablet by mouth daily 84 tablet 2 2 Active Active Problems No known active problems Social History Tobacco Use Types Packs/Day Years [...] on file Legal Sex Female 6:12 PM SHUTTLER Gender Identity Not on file Sexual Orientation Not on file Last Filed Vital Signs [...] 07/08/2021 5:24 PM CDT Plan of Treatment Not on file Procedures Procedure Name Priority Date/Time Associated Diagnosis Comments HEPATITIS C ANTIBODY Routine 04/05/2021 12:44 PM SHUTTLER Screen for STD (sexually transmitted disease) THINPREP PAP Routine 04/20/2017 9:10 PM SHUTTLER from Last 3 Months or Most Recently Relevant to Health Maintenance Results * Hepatitis C antibody (04/05/2021 12:44 PM SHUTTLER) Hep C Ab Nonreactive Nonreactive GISELLE STEPHENS Comment: Interpretive Data Nonreactive: Antibodies to HCV [...] on 2019. Blood 04/05/2021 12:4 4 PM SHUTTLER 04/05/2021 6:39 PM SHUTTLER us Sergio Duran MD LAB MICROBIOLOGY - GENERAL ORDERABLES Final Result [facility] [address] [facility] Department [place] [address] * ThinPrep Pap (04/20/2017 9:10 PM SHUTTLER) THIN PREP PAP SMEAR SEE NOTES 04/27/2017 11:23 AM SHUTTLER [facility] HISTORICAL RESULTS Comment: [facility] Department of Pathology [address] [place] [address] Final Report with Addendum Patient Name: CAYLA HARDIN Address: [address] [place] [address] Service: Laboratory Location: Lab Taken: 04/20/2017 Gender: F Received 04/22/2017 : 1985 (Age: 31) Hospital #: [id number] Accessioned: 04/23/2017 Patient Type: CH Ref Lab Reported 04/24/2017 Physician(s): Dr. Sergio Duran M.D. [facility] Diagnosis: Source of Specimen: SCREENED [...] 66 and 66. . Test performed utilizing Gen-Probe Aptima assay. RICHARD Brewster(ASCP) Report Electronically Reviewed [...] determined by the Surgical Pathology Department at [facility] as part of an ongoing quality systems technician program and in compliance with federally [...] determined by the Surgical Pathology Department of [facility]. It has not been cleared or approved by the U. S. Food and Drug Administration. 04/20/2017 9:10 PM SHUTTLER 04/21/2017 2:42 PM SHUTTLER Sergio Messi Duran MD LAB PATHOLOGY ORDERABLES F inal Result [facility] HISTORICAL RESULTS from Last 3 Months or Most Recently Relevant to Health Maintenance Insurance [employer] [facility] [employer] Address: [address] [place] [address] [facility] [employer] Address: [address] [place] [address] [employer] [employer] [employer] [employer] Address: [address] [place] [address] Care Teams Steam Locomotive Firer/Fireman Relationship Specialty Start Date End Date Betty Cruz NP [place] [place] [address] PCP - General Legal Coordinator 11/25/19
[2024-07-01 01:48] LABS: Basophils Absolute Auto 0.1 K/mm3 (0.0-0.1); Basophils Percent Auto 0.7 % (0.2-1.2); Eosinophils Absolute Auto 0.1 K/mm3 (0-0.3); Eosinophils Percent Auto 1.2 % (0-4.4); Hematocrit 34.9 % (37.0-47.0); Hemoglobin 11.2 g/dL (12.0-15.0); Immature Granulocyte Absolute 0.02 K/mm3 (0.00-0.031); Immature Granulocyte Percent A 0.3 % (0-0.5); Lymphocytes Absolute Auto 1.46 K/mm3 (0.9-3.2); Lymphocytes Percent Auto 21.1 % (18.3-44.2); Mean Corpuscular HGB Conc 32.1 g/dl (32-36); Mean Corpuscular Hemoglobin 28.7 pg (26-34); Mean Corpuscular Volume 89.5 fl (80-100); Mean Platelet Volume 10.4 fl (7.4-10.4); Monocytes Absolute Auto 0.8 K/mm3 (0.1-0.6); Monocytes Percent Auto 11.9 % (2.6-8.5); Neutrophils Absolute Auto 4.5 K/mm3 (1.3-6.7); Neutrophils Percent Auto 64.8 % (45.5-73.1); Platelet Count Result 295 k/mm3 (150-375); Red Cell Distribution Width 14.4 % (11.5-14.5); White Blood Count 6.9 K/mm3 (4.5-10.0)
[2024-07-01 01:48] LABS: BEDSIDEPREGUCG Negative (Negative)
[2024-07-01 01:52] LABS: Alanine Aminotransferase 11 U/L (6-35); Albumin Level 4.4 g/dL (3.5-5.1); Alkaline Phosphatase 57 U/L (38-126); Anion Gap 6 mmol/L (4-12); Aspartate Amino Transferase 22 U/L (14-36); Bilirubin,Total 0.6 mg/dL (0.2-1.3); Blood Urea Nitrogen 13 mg/dL (7-17); Calcium 9.2 mg/dL (8.4-10.2); Carbon Dioxide 28 mmol/L (22-30); Chloride 105 mmol/L (98-107); Estimated CRCL calculation 90 ml/min; Estimated Glomerular Filt Rate > 60; Glucose 106 mg/dL (65-110); Lipase 40 U/L (23-300); Potassium 3.8 mmol/L (3.4-5.0); Sodium 139 mmol/L (137-145)
--- OUTSIDE RECORDS SUMMARY | 2024-07-01 01:57 | XMS_ITS | Clinical Summary ---
Author Organization [facility] [employer] Address [address] [place] [address] Care Team Providers Care Insurance Follow Up Specialist Name Role Phone Betty Cruz BREAST PULLER-HYDROMETEOROLOGICAL TECHNICIAN Primary Care Provider [phone] Source Comments [facility] [employer] [facility],non-owned Affiliates and Associated Physician Practices is amultiple site organization consisting of ambulatory clinics and hospital sitesin [place], [place] and [place]. This disclosure is being madepursuant to the Care Everywhere program and may not contain all information available regarding this patient. Last updated 17.[facility] Allergies No known active allergies Medications * Be aware that medications may not be up to date on this document. Alwaysverify current medications with the patient. nystatin/triamc inolone (MYCOLOG) 925566-5.1 UNIT/GM-% ointment SANJU SPARINGLY EXT AA BID [...] on file Legal Sex Female 5:33 AM MATERIALS TECHNICIAN Gender Identity Not on file Sexual Orientation [...] patient's age to complete this topic Insurance [facility] Care Teams Insurance Follow Up Specialist Relationship Specialty Start Date End Date Betty Cruz APRN-NITA [place] [address] [place] [address] PCP - General 09/02/17
--- OUTSIDE RECORDS SUMMARY | 2024-07-01 01:57 | XMS_ITS | Clinical Summary ---
Author Organization [facility] Address [address] [place] [address] Care Team Providers Care Data Transcriber Name Role Phone Valentín Cruz NP Primary Care Provider [phone] Allergies No known active allergies Medications ondansetron [...] 06/24/2024 11:20 AM CDT Allied Health/Nurse Visit [address] [phone] Valentín Cruz NP Blood In Urine 06/24/2024 - 06/24/2024 11:59 PM CDT Hospital Encounter [facility] [place] [address] Valentín Cruz NP Discharge Disposition: Home or Self Care (Routine Discharge) 06/24/2024 Travel 06/09/[address] [phone] Valentín Cruz NP Results (Imaging results. Unable to LVM.) 06/08/[address] [phone] Valentín Cruz NP Question 06/08/[address] [phone] Valentín Cruz NP Follow Up Call 06/08/2024 Results Follow-Up [address] [phone] Valentín Cruz NP XR ABD KUB, URINALYSIS AUTO DIP, URINALYSIS MICRO ONLY 06/07/2024 4:30 PM CDT - 06/07/2024 11:59 PM CDT Hospital Encounter [facility] [place] [address] Valentín Cruz NP Discharge Disposition: Home or Self Care (Routine Discharge) 06/07/2024 3:20 PM CDT Office Visit [address] [phone] Valentín Cruz NP Back Pain (Patient was recently treated with abx (cephalexin) for a UTI after going to . 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 STRATEGIC SOURCING MANAGER Breast pain, left OUTSIDE CYTOPATH CERV/VAG INTERPRET (PAP) Routine 04/20/2017 from Last 3 Months or Most Recently Relevant to Health Maintenance Results * URINE BACTERIA CULTURE (06/24/2024 3:06 PM CDT) SPEC DESCRIPTION URINE CLEAN CATCH 06/24/2024 3:06 PM CDT [facility] SPECIAL REQUESTS NO SPECIAL REQUEST 06/24/2024 3:06 PM CDT [facility] CULTURE RESULT EQUAL OR >100,000 CFU/mL GRAM POSITIVE BACILLI RESEMBLING DIPHTHEROIDS 06/27/2024 2:51 PM CDT [facility] URINE SPECIMEN OBTAINED BY CLEAN CATCH PROCEDURE / Unknown 06/24/2024 3:06 PM CDT 06/24/2024 9:21 PM CDT us Valentín Cruz NP MICROBIOLOGY - GENERAL ORDERABL ES Final Result [facility] [place] [address], [id number] * (ABNORMAL) URINALYSIS AUTO DIP (06/24/2024 11:47 AM CDT) Only the most recent of2 resultswithin the time period is included. COLOR (U) PALE YELLOW YELLOW [facility] CLEAR CLEAR MG-LUDW IG [facility] [place] GLUCOSE (U) NEGATIVE NEGATIVE MG/DL [facility] [place] BILIRUBIN (U) NEGATIVE NEGATIVE -NAINA WIG [facility] [place] [facility] KETONES MG/DL (U) NEGATIVE NEGATIVE MG/DL [facility] [place] SPECIFIC GRAVITY (U) 1.015 1.001 - 1.035 [facility] [place] BLOOD (U) NEGATIVE NEGATIVE [facility] [place] U PH 7.0 5.0 - 9.0 [facility] [place] PROTEIN (U) NEGATIVE NEGATIVE mg/dL [facility] [place] UROBILINOGEN 0.2 0.2 - 1.0 EU/dL = mg/dL [facility] [place] NITRITES NEGATIVE NEGATIVE MG/DL [facility] [place] LEUKOCYTES (U) TRACE(A) NEGATIVE -GLORIA DWIG [facility] URINE SPECIMEN OBTAINED BY CLEAN CATCH PROCEDURE / Unknown 06/24/2024 11:47 AM CDT us Valentín Cruz DIRECTOR OF UNDERGRADUATE ADMISSIONS URINE ORDERABLES Final Result [facility] [address] [place] [address], * XR ABD KUB (06/07/2024 4:39 PM [...] 8:38 AM Narrative 06/08/2024 8:40 AM CDT [address] [place], [place] [address] PROCEDURE: XR ABD KUB HISTORY: rule out [...] Procedure Note Zoe Shepard MD - 06/08/2024 [facility] [address] [place], [place] [address] PROCEDURE: XR ABD KUB HISTORY: rule out [...] Shepard MD, 06/08/2024 8:38 AM Valentín Cruz DIRECTOR OF UNDERGRADUATE ADMISSIONS GENERAL IMAGING Final Result * (ABNORMAL) URINALYSIS MICRO ONLY (06/07/2024 4:09 PM CDT) RBC/HPF 4-9(A) 0 - 3 /HPF 06/07/2024 7:39 PM CDT [facility] WBC/HPF 0-3 0 - 3 /HPF 06/07/2024 7:39 PM CDT [facility] EPI/HPF 0-3 /HPF 06/07/2024 7:39 PM CDT [facility] BACTERIA (U) NONE SEEN NONE SEEN 06/07/2024 7:39 PM CDT [facility] MUCUS FEW 06/07/2024 7:39 PM CDT [facility] URINE SPECIMEN OBTAINED BY CLEAN CATCH PROCEDURE / Unknown 06/07/2024 4:09 PM CDT us Valentín Cruz DIRECTOR OF UNDERGRADUATE ADMISSIONS URINE ORDERABLES Final Result [facility] [address] [place] [address], * MG DIAG W ISABELLA BILAT DIGI (04/11/2022 12:36 PM SR. STRATEGIC SOURCING MANAGER) Anatomical Region Laterality Modality Breast Bilateral Mammography 04/11/2022 12:4 9 PM SR. STRATEGIC SOURCING MANAGER Narrative 04/11/2022 12:53 PM SR. STRATEGIC SOURCING MANAGER EXAMINATION: Digital bilateral diagnostic mammogram with 3-D [...] MD, 04/11/2022 12:49 PM us Valentín Cruz DIRECTOR OF UNDERGRADUATE ADMISSIONS MAMMO Final Result * PAP SMEAR WITH HPV (04/20/2017) 04/20/2017 [facility] Scanned SCANNING Final Resu lt [facility] from Last 3 Months or Most Recently Relevant to Health Maintenance Insurance [facility] Care Teams Data Transcriber Relationship Specialty Start Date End Date Valentín [place] [address] PCP - General 05/12/16
--- OUTSIDE RECORDS SUMMARY | 2024-07-01 01:57 | XMS_ITS | Clinical Summary ---
Author Organization [facility] Address [address] [place] [address] Care Team Providers Care Straightedge Man Name Role Phone Kelley Cruza ABIMBOLA Primary Care Provider [phone] Allergies No known active allergies Medications cholecalciferol [...] on file Legal Sex Female 6:12 PM MILITARY PAY CLERK Gender Identity Not on file Sexual Orientation [...] HEPATITIS C ANTIBODY Routine 04/05/2021 12:44 PM MILITARY PAY CLERK Screen for STD (sexually transmitted disease) THINPREP PAP Routine 04/20/2017 9:10 PM MILITARY PAY CLERK from Last 3 Months or Most Recently Relevant to Health Maintenance Results * Hepatitis C antibody (04/05/2021 12:44 PM MILITARY PAY CLERK) Hep C Ab Nonreactive Nonreactive GISELLE Comment: [...] on 2019. Blood 04/05/2021 12:4 4 PM MILITARY PAY CLERK 04/05/2021 6:39 PM MILITARY PAY CLERK Sergio Duran MD LAB MICROBIOLOGY - GENERAL ORDERABLES Final Result GISELLE [address] [facility] Department [place] [address] * ThinPrep Pap (04/20/2017 9:10 PM MILITARY PAY CLERK) THIN PREP PAP SMEAR SEE NOTES 04/27/2017 11:23 AM MILITARY PAY CLERK [facility] HISTORICAL RESULTS Comment: [facility] Department of Pathology [address] [place] [id number] Final Report with Addendum Patient Name: CAYLA HARDIN Address: [address] [place] [address] Service: Laboratory Location: Lab Taken: 04/20/2017 Gender: F Received 04/22/2017 : 1985 (Age: 31) Hospital #: [id number] Accessioned: 04/23/2017 Patient Type: CH Ref Lab Reported 04/24/2017 Physician(s): Dr. Sergio Duran M.D. [facility] Diagnosis: Source of Specimen: SCREENED IMAGED PAP [...] 66 and 68. . Test performed utilizing Gen-MarginLeft Aptima assay. RICHARD Brewster(ASCP) Report Electronically Reviewed [...] determined by the Surgical Pathology Department at [facility] as part of an ongoing quality process lead program and in compliance with federally mandated [...] determined by the Surgical Pathology Department of [facility]. It has not been cleared or approved by the U. S. Food and Drug Administration. 04/20/2017 9:10 PM MILITARY PAY CLERK 04/21/2017 2:42 PM MILITARY PAY CLERK Sergio Duran MD LAB PATHOLOGY ORDERABLES F inal Result [facility] HISTORICAL RESULTS from Last 3 Months or Most Recently Relevant to Health Maintenance Insurance [facility] [employer] Address: [facility] [address] [place] [address] [facility] [employer] Address: [address] [place] [address] [employer] Address: [facility] [id number] [place] [address] Care Teams Straightedge Man Relationship Specialty Start Date End Date Betty Cruz NP [address] [place] [address] PCP - General Promotional Advertising Assistant 11/25/19
--- OUTSIDE RECORDS SUMMARY | 2024-07-01 01:57 | XMS_ITS | Referral Summary ---
Author Organization [facility] Address [address] [place] [address] Care Team Providers Care Route Driver Name Role Phone Kelley Cruza ABIMBOLA Primary Care Provider [phone] Allergies No known active allergies Medications cholecalciferol [...] on file Legal Sex Female 6:12 PM TAMALE MAKER Gender Identity Not on file Sexual Orientation [...] HEPATITIS C ANTIBODY Routine 04/05/2021 12:44 PM TAMALE MAKER Screen for STD (sexually transmitted disease) THINPREP PAP Routine 04/20/2017 9:10 PM TAMALE MAKER from Last 3 Months or Most Recently Relevant to Health Maintenance Results * Hepatitis C antibody (04/05/2021 12:44 PM TAMALE MAKER) Hep C Ab Nonreactive Nonreactive GISELLE STEPHENS [...] on 2019. Blood 04/05/2021 12:4 4 PM TAMALE MAKER 04/05/2021 6:39 PM TAMALE MAKER us Sergio Duran MD LAB MICROBIOLOGY - GENERAL ORDERABLES Final Result GISELLE [address] [facility] Department [place] [address] * ThinPrep Pap (04/20/2017 9:10 PM TAMALE MAKER) THIN PREP PAP SMEAR SEE NOTES 04/27/2017 11:23 AM TAMALE MAKER [facility] HISTORICAL RESULTS Comment: [facility] Department of Pathology [address] [place] [id number] Final Report with Addendum Patient Name: CAYLA HARDIN Address: [address] [place] [address] Service: Laboratory Location: Lab Taken: 04/20/2017 Gender: F Received 04/22/2017 : 1985 (Age: 31) Hospital #: [id number] Accessioned: 04/23/2017 Patient Type: CH Ref Lab Reported 04/24/2017 Physician(s): Dr. Sergio Duran M.D. [facility] Diagnosis: Source of Specimen: SCREENED IMAGED [...] determined by the Surgical Pathology Department at [facility] as part of an ongoing machined parts quality inspector program and in compliance with federally mandated [...] determined by the Surgical Pathology Department of [facility]. It has not been cleared or approved by the U. S. Food and Drug Administration. 04/20/2017 9:10 PM TAMALE MAKER 04/21/2017 2:42 PM TAMALE MAKER Sergio Messi Duran MD LAB PATHOLOGY ORDERABLES F inal Result [facility] HISTORICAL RESULTS from Last 3 Months or Most Recently Relevant to Health Maintenance Insurance [employer] Address: [address] [place] [address] [facility] [employer] Address: [address] [place] [address] [facility] [employer] [employer] Address: [address] [place] [address] Care Teams Route Driver Relationship Specialty Start Date End Date Betty Cruz [place] [place] [address] PCP - General Airplane Fueler 11/25/19
--- OUTSIDE RECORDS SUMMARY | 2024-07-01 01:57 | XMS_ITS | Encounter Summary ---
Author Organization [facility] Address [address] [place] [address] Phone Care Team Providers Care Industrial Education Teacher Name Role Phone Unknown, Notinfile Primary Care Provider Unavail able Betty Cruz AD OPERATIONS INTERN Primary Care Provider [phone] Encounter Details Date Type Department Care Team (Late st Contact Info) Description 04/20/2017 Orders Only [facility] ProviderLakesha MD [address] [place], [place] [id number] Social History Tobacco Use Types Packs/Day Years Used Date Smoking Tobacco: Never Assessed Comments Unknown Sex and Gender Information Value Date Recorded Sex Assigned at Not on file Legal Sex Female 6:12 PM ECOLOGICAL MODELER Gender Identity Not on file Sexual Orientation Not on file documented as of this encounter Plan of Treatment Not on file documented as of this encounter Procedures Procedure Name Priority Date/Time Associated Diagnosis Comments CYTOLOGY 04/20/2017 12:00 AM ECOLOGICAL MODELER documented in this encounter Results * CYTOLOGY (04/20/2017 12:00 AM ECOLOGICAL MODELER) Narrative 04/20/2017 12:00 AM ECOLOGICAL MODELER Ordered by an unspecified provider. Historical Provider [...] documented as of this encounter Care Teams Industrial Education Teacher Relationship Specialty Start Date End Date Unknown, Notinfile PCP - General 04/06/18 11/24/19 Betty Cruz [place] [place] [address] PCP - General Optical Glass Wet Inspector 11/25/19 documented as of this encounter
[2024-07-01 02:45] LABS: Add Urine Microscopic? YES; Appearance Urine Clear (Clear); Bacteria Urine 2+ /hpf; Bilirubin Urine Negative (Negative); Blood Urine 1+ (Negative); Color Urine Yellow (Yellow); Glucose Urine UA Negative (Negative); Ketones Urine Trace mg/dL (Negative); Leukocyte Esterase Ur 1+ LEU/UL (Negative); Need Manual Microscopic Reviewed; Nitrate Urine Negative (Negative); Non Pathogenic Casts 0-2; Protein Urine Trace mg/dL (Negative); Specific Grav Ur 1.031 (1.001-1.035); Squamous Epithelial Cell Urine Moderate /hpf (Few); WBC Urine 0-5 /hpf (0-3); pH Urine 5.5 (5.0-9.0)
--- NOTE | 2024-07-01 04:25 | ED_ITS ---
HPI - Abdominal Pain General Chief Complaint: Abdominal Pain Stated Complaint: abd pain Time Seen by Provider: 07/01/24 01:29 Source: patient Mode of arrival: ambulatory Limitations: no limitations History of Present Illness HPI narrative: 38-year-old otherwise healthy here with a complains pain in the lower abdomen for past 1 week or so with a few things may be having a kidney stone. She has no new in his symptoms. Denies any fever or chills failure patient states that she follow up family doctor recommended to go to the ER for CT scan. MD elicited complaint: abdominal pain Pertinent past history: none Onset (ago): week(s) (1) Location: suprapubic Severity: moderate Quality: aching Radiation: back Migration to: other (lower back) Exacerbating factors: nothing Relieving factors: nothing Associated symptoms: denies other symptoms Related Data Allergies Allergy/AdvReac Type Severity Reaction Status Date / Time No Known Allergies Allergy Verified 07/01/24 00:42 Review of Systems 2 Review of Systems: All systems reviewed & are unremarkable except as noted in HPI and below Constitutional: Constitutional: Reports no additional constitutional complaints Eyes: Eyes: Reports no additional eye complaints ENT: Reports system reviewed and no additional complaints, except as documented Cardiovascular: Cardiovascular: Reports no additional cardiovascular complaints Respiratory: Respiratory: Reports no additional respiratory complaints Gastrointestinal: Gastrointestinal: Reports as per HPI Musculoskeletal: Musculoskeletal: Reports no additional musculoskeletal complaints Neurologic: Reports system reviewed and no additional complaints, except as documented PMFSH Past Medical History Medical History No significant past medical history Surgical History Surgical History No significant past surgical history Social History Social History Smoking status: Never smoker Alcohol intake: never Substance use: never Exam 2 Narrative: GENERAL: Well-appearing, well-nourished, and in no acute distress. HEAD: Normocephalic, atraumatic. EYES: PERRLA and EOMI. ENT: Nares clear, no rhinorrhea or epistaxis. Mucous membranes moist. NECK: Supple. CHEST: Clear to auscultation. No respiratory distress. HEART: Regular rate and rhythm. No murmur heard. Normal peripheral pulses. ABDOMEN: Soft, nontender, nondistended, normal active bowel sounds. EXTREMITIES: Normal range of motion. No edema. SKIN: Warm, dry, no rash. NEURO: No focal deficits. Alert and oriented x3. PSYCH: Normal mood and affect. Course Course Emergency Course: Patient comfortably resting informed about the lab work, CT findings cause of pain is unknown at this time. Advised her to take ibuprofen for pain as needed, follow-up with her primary doctor. Vital Signs Vital signs: Vital Signs Temperature 36.7 C 07/01/24 00:46 Pulse Rate 89 07/01/24 00:46 Respiratory Rate 18 07/01/24 00:46 Blood Pressure 122/78 07/01/24 00:46 Pulse Oximetry 100 07/01/24 00:46 Oxygen Delivery Room Air 07/01/24 00:46 Temperature 36.7 C 07/01/24 00:46 Pulse Rate 76 07/01/24 03:02 Respiratory Rate 15 07/01/24 03:02 Blood Pressure 102/63 07/01/24 03:01 Pulse Oximetry 99 07/01/24 03:02 Oxygen Delivery Room Air 07/01/24 00:46 MDM - Abdominal Pain Differential Diagnosis Differential diagnosis: Likely abdominal pain, calculus of kidney, diverticulitis and gastroenteritis Medical Records Attestation: I reviewed the patient's medical records. Lab Data Attestation: I reviewed the patient's lab results. 07/01/24 01:38 07/01/24 01:38 Labs: Lab Results 07/01/24 07/01/24 07/01/24 Range/Units 01:38 01:44 01:45 WBC 6.9 (4.5-10.0) K/mm3 RBC 3.90 L (4.2-5.4) M/mm3 Hgb 11.2 L (12.0-15.0) g/dL Hct 34.9 L (37.0-47.0) % MCV 89.5 (80-100) fl MCH 28.7 (26-34) pg MCHC 32.1 (32-36) g/dl RDW 14.4 (11.5-14.5) % Plt Count 295 (150-375) k/mm3 MPV 10.4 (7.4-10.4) fl Immature Gran % (Auto) 0.3 (0-0.5) % Neut % (Auto) 64.8 (45.5-73.1) % Lymph % (Auto) 21.1 (18.3-44.2) % Mcintosh % (Auto) 11.9 H (2.6-8.5) % Eos % (Auto) 1.2 (0-4.4) % Baso % (Auto) 0.7 (0.2-1.2) % Lymph # (Auto) 1.46 (0.9-3.2) K/mm3 Mcintosh # (Auto) 0.8 H (0.1-0.6) K/mm3 Eos # (Auto) 0.1 (0-0.3) K/mm3 Baso # (Auto) 0.1 (0.0-0.1) K/mm3 Abs Immat Gran (auto) 0.02 (0.00-0.031) K/mm3 Absolute Neuts (auto) 4.5 (1.3-6.7) K/mm3 Absolute Nucleated RBC 0.000 (0.0-0.012) K/mm3 Nucleated RBC % 0.0 (0.0-0.2) % Sodium 139 (137-145) mmol/L Potassium 3.8 (3.4-5.0) mmol/L Chloride 105 (98-107) mmol/L Carbon Dioxide 28 (22-30) mmol/L Anion Gap 6 (4-12) mmol/L BUN 13 D (7-17) mg/dL Creatinine 0.86 (0.7-1.0) mg/dL Estim Creat Clear Calc 90 ml/min Estimated GFR > 60 (59 - ) Glucose 106 (65-110) mg/dL Calcium 9.2 (8.4-10.2) mg/dL Total Bilirubin 0.6 (0.2-1.3) mg/dL AST 22 (14-36) U/L ALT 11 (6-35) U/L Alkaline Phosphatase 57 (38-126) U/L Total Protein 8.0 (6.3-8.2) g/dL Albumin 4.4 (3.5-5.1) g/dL Lipase 40 (23-300) U/L Urine Color Yellow (Yellow) Urine Appearance Clear (Clear) Urine pH 5.5 (5.0-9.0) Ur Specific Durant 1.031 (1.001-1.035) Urine Protein Trace (Negative) mg/dL Urine Glucose (UA) Negative (Negative) mg/dL Urine Ketones Trace H (Negative) mg/dL Ur Blood (Man) 1+ H (Negative) Urine Nitrate Negative (Negative) Urine Bilirubin Negative (Negative) Urine Urobilinogen 1.0 (<2.0) mg/dL Add Ur Microanalysis Reviewed Leukocyte Esterase Rfl 1+ H (Negative) ANTHONY/UL Urine RBC 6-10 H (0-2) /hpf Urine WBC 0-5 (0-3) /hpf Ur Squamous Epith Cells Moderate (Few) /hpf Urine Bacteria 2+ H /hpf Urine Casts 0-2 POC Urine HCG, Qual Negative (Negative) Imaging Data Radiologist's impression: CT of the abdomen and pelvis showed no evidence of diverticulitis kidney stones normal CT Discharge Plan Discharge Clinical Impression: Abdominal pain Qualifiers: Abdominal location: lower abdomen, unspecified Qualified Code(s): R10.30 - Lower abdominal pain, unspecified Patient Disposition: Home Condition: Stable Instructions: Abdominal Pain (ED) Additional Instructions: can take Ibuprofen for pain as needed. Patient Language: Albanian Prescriptions: No Action albuterol sulfate 90 mcg/actuation HFA aerosol inhaler 2 puff inhalation QID PRN (Reason: shortness of breath or wheezing) Qty: 6.7 0RF benzonatate 200 mg capsule 200 mg PO TID PRN (Reason: cough) Qty: 9 0RF Follow-up/Referrals: Anthony,PANCHO Hernández [Primary Care Provider] - Time of Disposition: 04:27
== END 2024-07-01 04:48 | disposition home or self-care (01) ==
PROVIDERS: Emergency Provider Family Medicine; PCP Nurse Practitioner
DX: R10.30 Lower abdominal pain, unspecified (principal); M54.50 Low back pain, unspecified
CPT/HCPCS: 36415; 74176; 80053; 81001; 81025; 83690; 85025; 99284